=== PATIENT | female | born 1995 | race African-American/Black ===

== ENCOUNTER 2020-10-25 13:57 | Emergency (ER) | payer MEDICAID ==
[~2020-10-25] VITALS: Ht 170.2 cm; Wt 71.0 kg
[2020-10-25 14:09] VITALS: BP 125/95
[2020-10-25] MEDS ORDERED: DIPHENHYDRAMINE 50MG CAPSULE PO ONE (14:30)
[2020-10-25] MEDS ORDERED: NIZOS TP (15:21)
[2020-10-25] MEDS ORDERED: DEXAMETHASONE 4MG TABLET PO ONE (15:30)
== END 2020-10-25 15:39 | disposition home or self-care (01) ==
LOC: ER 14:34
DX: L30.9 Dermatitis, unspecified (principal); Z59.0 Homelessness
CPT/HCPCS: 99283; J8540; Q0163